=== PATIENT | female | born 1995 | race Caucasian/White ===

== ENCOUNTER 2016-07-04 12:49 | Emergency (ER) | payer OTHER ==
--- NOTE | 2016-07-04 13:05 | EDPHY ---
H & P Stated Complaint: UTI symptoms HPI/ROS: HPI CHIEF COMPLAINT: Urinary frequency, dysuria HISTORY OF PRESENT ILLNESS: This patient very pleasant 20-year-old female, denies any significant medical history she presents emergency room stating that she is having increasing urinary frequency and dysuria. She denies flank pain, fever, vomiting or abdominal pain. She denies being . She tells me that a week and half ago she thought she had a urinary tract infection she took [id number] medication it did somewhat improved however her discomfort came back. She denies any vaginal discharge. Past Medical History: No significant medical history Past Surgical History: Left foot surgery, right elbow surgery Social History: Daily tobacco use, denies drugs or alcohol Family History: Noncontributory ROS REVIEW OF SYSTEMS: A comprehensive 10 point review of systems is otherwise negative aside from elements mentioned in the history of present illness. Exam Constitutional triage nursing summary reviewed, vital signs reviewed, awake/ alert. Eyes normal conjunctivae and sclera, EOMI, PERRLA. HENT normal inspection, atraumatic, moist mucus membranes, no epistaxis, neck supple/ no meningismus, no raccoon eyes. Respiratory clear to auscultation bilaterally, normal breath sounds, no respiratory distress, no wheezing. Cardiovascular rate normal, regular rhythm, no murmur, no edema, distal pulses normal. Gastrointestinal soft, non-tender, no rebound, no guarding, normal bowel sounds, no distension, no pulsatile mass. Genitourinary no CVA tenderness. Musculoskeletal no midline vertebral tenderness, full range of motion, no calf swelling, no tenderness of extremities, no meningismus, good pulses, neurovascularly intact. Skin pink, warm, & dry, no rash, skin atraumatic. Neurologic awake, alert and oriented x 3, AAOx3, moves all 4 extremities equally, motor intact, sensory intact, CN II-XII intact, normal cerebellar, normal vision, normal speech. Psychiatric normal mood/affect. Heme/Lymph/Immune no lymphadenopathy. Differential Diagnosis: Includes but is not limited to in a particular order, UTI, cystitis, Medical Decision Making:Will check this patient's urinalysis and test. Re-evaluation: 1347: patient's urinalysis resulted indicate she has UTI. Negative test. She is resting comfortably 1st dose of Keflex given here in the emergency room. Vital signs reviewed. No fever. Prescription for Keflex and Pyridium. She understands return emergency room if she develops any worsening symptoms includes vomiting, fever, worsening pain. Source: Patient - Personal History LMP (Females 10-55): IUD In Place Current Tetanus/Diphtheria Vaccine: Unsure Current Tetanus Diphtheria and Acellular Pertussis (TDAP): Unsure - Medical/Surgical History Hx Asthma: No Hx Chronic Respiratory Disease: No Hx Diabetes: No Hx Cardiac Disease: No Hx Renal Disease: No Hx Cirrhosis: No Hx Alcoholism: No Hx HIV/AIDS: No Hx Splenectomy or Spleen Trauma: No Other PMH: HEROIN ABUSE - Social History Smoking Status: Current every day smoker Constitutional: Initial Vital Signs Temperature (C) 36.8 C 07/04/16 12:51 Heart Rate 104 H 07/04/16 12:51 Respiratory Rate 20 07/04/16 12:51 Blood Pressure 120/79 07/04/16 12:51 O2 Sat (%) 96 07/04/16 12:51 O2 Delivery Mode Room Air Allergies/Adverse Reactions: clarithromycin [From Biaxin] Allergy (Verified 08/02/15 09:52) Home Medications: Medication Instructions Recorded Nuvaring Vaginal Ring 03/17/13 Xanax 03/17/13 Ondansetron Odt [Zofran Odt] 4 mg PO Q4 #6 tab 08/02/15 Cephalexin [Keflex] 500 mg PO Q6H #28 cap 07/04/16 Phenazopyridine HCl [Pyridium] 200 mg PO TID #15 tab 07/04/16 Medical Decision Making - Data Points Laboratory Results: 07/04/16 07/04/16 12:50 12:45 Urine Color JUAN Urine Appearance MODERATELY TURBID Urine pH 5.0 (5.0-7.5) Ur Specific [place] 1.030 (1.002-1.030) Urine Protein 2+ H (NEGATIVE) Urine Ketones NEGATIVE (NEGATIVE) Urine Blood 1+ H (NEGATIVE) Urine Nitrate NEGATIVE (NEGATIVE) Urine Bilirubin NEGATIVE (NEGATIVE) Urine Urobilinogen NEGATIVE EU (0.2-1.0) Ur Leukocyte Esterase 2+ H (NEGATIVE) Urine RBC 25-50 H /hpf (0-3) Urine WBC 50-182 H /hpf (0-3) Ur Epithelial Cells TRACE /lpf (NONE-1+) Urine Bacteria 2+ H /hpf (NONE SEEN) Hyaline Casts 1-5 /lpf (0-1) Urine Mucus 3+ H /lpf (NONE-1+) Ur Culture Indicated? INDICATED H (NI) Urine Glucose NEGATIVE (NEGATIVE) Urine Test NEGATIVE Medications Given: Discontinued Medications Cephalexin HCl (Keflex) 500 mg PO EDNOW ONE PRN Reason: Protocol Stop: 07/04/16 13:21 Last Admin: 07/04/16 13:29 Dose: 500 mg Departure - Departure Disposition: Home, Routine, Self-Care Clinical Impression: Urinary tract infection Qualifiers: Urinary tract infection type: acute cystitis Hematuria presence: with hematuria Qualifier Code: (N30.01) Acute cystitis with hematuria Condition: Good Instructions: Dysuria (ED), Urinary Tract Infection in Women (ED) Additional Instructions: 1. Drink lots of fluids. 2. Return emergency room if develops worsening symptoms includes worsening pain , fever, vomiting 3. Take antibiotics as prescribed. Referrals: NONE *PRIMARY CARE P,. [Primary Care Provider] - As per Instructions Prescriptions: Cephalexin [Keflex] 500 mg PO Q6H #28 cap Phenazopyridine HCl [Pyridium] 200 mg PO TID #15 tab
[2016-07-04 13:13] LABS: COLOR AMBER; LEUKOCYTE ESTERASE,URINE 2+ (NEGATIVE); NITRITE,URINE NEGATIVE (NEGATIVE)
[2016-07-04] MEDS ORDERED: CEPHALEXIN 500 MG CAP PO ONE (13:20)
[2016-07-04 13:24] LABS: BACTERIA 2+ /hpf (NONE SEEN); MUCUS 3+ /lpf (NONE-1+); RBC,URINE 25-50 /hpf (0-3); WBC,URINE 50-182 /hpf (0-3)
[2016-07-04 14:05] VITALS: BP 123/68; PULSE 81; RESP 18; TEMP 98.1; O2SAT 94
== END 2016-07-04 14:04 | disposition home or self-care (01) ==
DX: N30.01 Acute cystitis with hematuria (principal); B96.89 Other specified bacterial agents as the cause of diseases classified elsewhere; F17.200 Nicotine dependence, unspecified, uncomplicated